=== PATIENT | male | born 1975 | race Caucasian/White ===

== ENCOUNTER → 2016-11-12 | Outpatient (CLI) | payer OTHER | LOC: FIMAGING 10:05 | PROVIDERS: ATTEND Family Medicine | DX: K82.8 Other specified diseases of gallbladder (principal); R10.13 Epigastric pain | CPT/HCPCS: 78227; A9537 ==

== ENCOUNTER 2017-03-12 07:41 | Day surgery (SDC) | payer OTHER ==
--- NOTE | 2017-01-14 14:02 | GHP ---
[f rep st] PREOP HISTORY AND PHYSICAL DATE OF ADMISSION: 01/16/2017 HISTORY OF PRESENT ILLNESS: The patient is a 41-year-old male who initially presented with right up per quadrant abdominal pain associated with nausea and vomiting, and has been referred to us with a diagnosis of gallbladder dyskinesia from a HIDA scan, measuring an ejection fraction at 14%. He was seen in the ER in August at [facility] and he was found to have elevated LFTs and some gallbladder wall thi ckening on ultrasound. He was seen again in an ER in October in [place] for the same symptoms. He has also seen his PCP for some complaints of diarrhea. At this time, he is ready to proceed with a lap aroscopic cholecystectomy. Risks and options have been fully discussed including, but not limited t o, bleeding, infection, nerve injury, bile duct injury, retained stone, need for ERCP, open procedur e, failure to relieve some or all of his symptoms, and other problems, and he requests to proceed. Incidentally, patient also reports a history of bilateral inguinal hernias. These cause him some mi ld discomfort. We have agreed to fix this at the same time. Risks of this procedure include, but a re not limited to, again, bleeding, infection, and nerve injury, but also conversion to open procedu re, recurrent hernia, bowel injury, bladder injury, testicular ischemia, and other problems, and he requests to proceed. PAST MEDICAL HISTORY: Includes actinic keratoses, inguinal hernia, renal lithiasis. PAST SURGICAL HISTORY: Includes ACL reconstruction, tympanostomy tubes, and surgery for renal lithi asis. MEDICATIONS: Vitamin B12, multivitamin, vitamin D. ALLERGIES: No known drug allergies. FAMILY HISTORY: Includes breast cancer and heart disease. SOCIAL HISTORY: The patient works as an software engineer developer. He is . He enjoys running, and has 2 chi ldren. REVIEW OF SYSTEMS: Negative aside from that in the HPI. PHYSICAL EXAMINATION: GENERAL: Reveals a well-developed, well-nourished, 41-year-old male, in no a cute distress. HEENT: Normocephalic, atraumatic. Sclerae white. CHEST: Clear to auscultation bi laterally. CARDIAC: Regular rate and rhythm. ABDOMEN: Soft with bilateral reducible groin masses , mild right upper quadrant tenderness without Moseley sign. EXTREMITIES: Warm and dry. IMPRESSION: This is a 41-year-old male with biliary dyskinesia and bilateral inguinal hernias. PLAN: Plan is to proceed with a laparoscopic cholecystectomy, possible intraoperative cholangiograp hy, with bilateral inguinal hernia repairs with mesh. Again, risks and options have been discussed and he requests to proceed. /[id number]/MODL
[~2017-03-12 07:41] MED LIST: cefOXitin SODIUM 2 GM in D5W 100 ML IV ONE
[2017-03-12] MEDS ORDERED: BUPIVACAINE 0.5% 30 ML SDV ONE (07:56)
[2017-03-12] MEDS ORDERED: ceFAZolin 1 GM/5 ML SYR ONE (07:57)
[2017-03-12] MEDS ORDERED: HEPARIN 1000 UNIT/1 ML MDV ONE (07:57)
--- NOTE | 2017-03-12 08:02 | PDHPUP ---
History & Physical Update H&P update statement: This history and physical update is based on an assessment of the patient which was completed after admission or registration (within 24 hours), but prior to the surgery/procedure. H&P update: H&P reviewed & patient examined, no change in patient's condition since H&P completed
[2017-03-12] MEDS ORDERED: LR 1,000 ML IV ONE (08:17)
[2017-03-12] MEDS ORDERED: LIDOCAINE 1% 2 ML INJ ID PRN (08:17)
[2017-03-12 08:36] VITALS: PULSE 60
[2017-03-12] MEDS ORDERED: MIDAZOLAM 2 MG/2 ML VIAL IVP ONE (09:23)
--- NOTE | 2017-03-12 09:25 | PDANEPAE ---
ANE Past Medical History - Cardiovascular History Hx Hypertension: No Hx Arrhythmias: No Hx Chest Pain: No Hx Coronary Artery / Peripheral Vascular Disease: No Hx CHF / Valvular Disease: No Hx Palpitations: No - Pulmonary History Hx COPD: No Hx Asthma/Reactive Airway Disease: No Hx Recent Upper Respiratory Infection: No Hx Oxygen in Use at Home: No Hx Sleep Apnea: No Sleep Apnea Screening Result - Last Documented: Negative - Neurologic History Hx Cerebrovascular Accident: No Hx Seizures: No Hx Dementia: No - Endocrine History Hx Diabetes: No - Renal History Hx Renal Disorders: No Renal History Comment: HX KIDNEY STONES - Liver History Hx Hepatic Disorders: Yes Hepatic History Comment: GALL BLADDER SXS - Neurological & Psychiatric Hx Hx Neurological and Psychiatric Disorders: No - Cancer History Hx Cancer: No - Congenital Disorder History Hx Congenital Disorders: No - GI History Hx Gastrointestinal Disorders: No - Other Health History Other Health History: NEG - Chronic Pain History Chronic Pain: No - Surgical History Prior Surgeries: ACL L KNEE 2001. EAR TUBES X3 CHILDHOOD ANE Review of Systems Review of Systems: - Exercise capacity METS (RN): 5 METS ANE Patient History - Allergies Allergies/Adverse Reactions: No Known Allergies Allergy (Unverified 06/08/14 07:29) - Home Medications Home Medications: NK [No Known Home Meds] 03/11/17 [Last Taken Unknown] - NPO status NPO Since - Liquids (Date): 03/11/17 NPO Since - Liquids (Time): 20:30 NPO Since - Solids (Date): 03/11/17 NPO Since - Solids (Time): 20:30 - Anes Hx Anes Hx: no prior problems - Smoking Hx Smoking Status: Never smoked - Family Anes Hx Family Hx Anesthesia Complications: NEG ANE Labs/Vital Signs - Vital Signs Blood Pressure: 101/77 Heart Rate: 60 Respiratory Rate: 16 O2 Sat (%): 97 Height: 167.64 cm Weight: 62.596 kg ANE Physical Exam - Airway Neck exam: FROM Mallampati Score: Class 1 Mouth exam: normal dental/mouth exam - Pulmonary Pulmonary: no respiratory distress, no rales or rhonchi, clear to auscultation - Cardiovascular Cardiovascular: regular rate and rhythym, no murmur, rub, or gallop - ASA Status ASA Status: I ANE Anesthesia Plan Anesthesia Plan: general endotracheal anesthesia
[2017-03-12] MEDS ORDERED: fentaNYL 100 MCG/2 ML INJ ONE ×3 (09:29→11:28)
[2017-03-12] MEDS ORDERED: PROPOFOL 200 MG/20 ML VIAL ONE (09:29)
[2017-03-12] MEDS ORDERED: ONDANSETRON 4 MG/2 ML VIAL ONE (09:30)
[2017-03-12] MEDS ORDERED: ROCURONIUM 50 MG/5 ML VIAL ONE (09:30)
[2017-03-12] MEDS ORDERED: LIDOCAINE 2% 5 ML SDV ONE (09:30)
[2017-03-12] MEDS ORDERED: DEXAMETHASONE 4 MG/ML VIAL ONE (09:30)
[2017-03-12] MEDS ORDERED: PROMETHAZINE HCL 25 MG/ML INJ IVP PRN (09:37)
[2017-03-12] MEDS ORDERED: ONDANSETRON 4 MG/2 ML VIAL IVP PRN (09:37)
[2017-03-12] MEDS ORDERED: LABETALOL HCL 50 MG/10 ML SYR IVP PRN (09:37)
[2017-03-12] MEDS ORDERED: NALOXONE HCL 0.4 MG/ML INJ IVP PRN (09:37)
[2017-03-12] MEDS ORDERED: MEPERIDINE 25 MG/ML SYR IVP PRN (09:37)
[2017-03-12] MEDS ORDERED: LR 500 ML IV PRN (09:37)
[2017-03-12] MEDS ORDERED: ACETAMINOPHEN 500 MG TAB PO PRN (09:37)
[2017-03-12] MEDS ORDERED: SUGAMMADEX SODIUM 200 MG/2 ML VIAL IVP ONE (10:47)
[2017-03-12] MEDS ORDERED: KETOROLAC 30 MG/1 ML SDV ONE (10:51)
--- NOTE | 2017-03-12 11:26 | POSTOPPROG ---
Post Op Note Date of Operation: 03/12/17 Surgeon: Alexsander Stinson Senior Hr Generalist: Ana Coronado Anesthesiologist: Danelle Anesthesia: GET(General Endotracheal) Pre-op Diagnosis: Biliary dyskinesia and bilateral inguinal hernia Post-op Diagnosis: same Indication: RUQ abdominal pain, symptomatic hernias Procedure: lap cholecystectomy and lap bilateral inguinal hernia repair c mesh Inf/Abcess present in the surg proc area at time of surgery?: No Depth: Organ Space EBL: Minimal Complications: None Specimen(s): Gallbladder to pathology
[2017-03-12] MEDS: fentaNYL 100 MCG/2 ML INJ IVP PRN ×2 (11:31→11:38)
[2017-03-12 11:36] VITALS: TEMP 96.8
--- NOTE | 2017-03-12 11:47 | POSTANESTH ---
Post Anesthetic Evaluation Cardiovascular Status: Normal, Stable, Similar to Pre-Op Cond Respiratory Status: Normal, Stable, Similar to Pre-op Cond. Level of Consciousness/Mental Status: Can Participate in Eval, Mildly Sleepy, Arousable Pain Control: Adequate, Prn Tx Ordered Nausea/Vomiting Control: Adequate, Prn Tx Ordered Complications Possibly Related to Anesthesia: None Noted
[2017-03-12] MEDS ORDERED: OXYCODONE/APAP 5/325 TAB ONE ×2 (12:05→13:13)
[2017-03-12] MEDS: OXYCODONE/APAP 5/325 TAB PO PRN ×2 (12:07→13:15)
[2017-03-12 12:56] VITALS: BP 109/74; RESP 16; O2SAT 95
--- NOTE | 2017-03-13 21:34 | GOP ---
[f rep st] OPERATIVE REPORT DATE OF OPERATION: 03/12/2017 SURGEON: Alexsander Stinson MD PREOPERATIVE DIAGNOSIS: Bilateral inguinal hernias and biliary dyskinesia. POSTOPERATIVE DIAGNOSIS: Bilateral inguinal hernias and biliary dyskinesia. PROCEDURE PERFORMED: 1. Laparoscopic bilateral inguinal hernia repairs. 2. Laparoscopic cholecystectomy. FINDINGS: Patient was found to have a large direct defect on the left, a smaller indirect defect and lipoma on the right, and he had an inflamed gallbladder with adhesions but no palpable stones. Duct s were small. DESCRIPTION OF PROCEDURE: Patient was taken to the operating room where he received satisfactory gen eral endotracheal anesthesia by Dr. Mcclendon. He was placed in supine position, prepped and draped in u sual sterile fashion. An infraumbilical incision was made. Dissection was carried down the rectus s luly which was incised. Subfascial tunnel was developed in the preperitoneal space, that was dissec marion free with a balloon dissector which was placed with CO2 insufflation. Two other trocars were radha efrain in the midline under direct vision. Ganga's ligament was exposed bilaterally. The cords were m obilized bilaterally. Peritoneum was dissected off the cord structures. There was no indirect sac o n the left side. On the right, there was a small indirect sac and a moderate lipoma which were disse cted free and reduced. Bilateral Covidien polyester mesh patches were placed over the inguinal floor . On the left side, a well-defined [id number]-adasd direct defect was identified. Its contents had been reduced. The mesh was then anchored over the defect and secured with AbsorbaTack securing it t o Ganga's ligament, to the lacunar ligament, anterior abdominal wall, and the lateral abdominal wall outside the internal ring. Both sides were handled in a similar manner. Hemostasis was assured. T rocars were removed under direct vision. Pneumopreperitoneum was released. Trocar sites were closed with 0 Vicryl for the fascia, 4-0 Monocryl subcuticular stitch for the skin. Attention was then turned to the gallbladder. A Veress needle was inserted through the periumbilical incision. Pneumoperitoneum was established. A 10 mm trocar was introduced. Laparoscope introduced . Good visualization was obtained. Three other trocars were placed in the upper abdomen under direc t vision. The gallbladder was elevated up, adhesions were taken down. The cystic triangle was caref ully dissected free. The cystic duct and cystic artery were isolated. A good clear view was obtaine d. Both structures were multiply hemoclipped and divided. Peritoneum of the gallbladder was incised and the gallbladder was dissected free from the bed in the hepatic fossa and extracted through the u mbilical port site. Wound was irrigated. Hemostasis was assured. Trocars were removed under direct vision. Trocar sites were closed with 0 Vicryl for the fascia, 4-0 Monocryl subcuticular stitch for the skin. All layers were infiltrated with 0.5% Marcaine. He tolerated the procedure quite well. There were no complications. Taken to the recovery room in good condition. /[id number]/MODL
== END 2017-03-12 13:52 | disposition home or self-care (01) ==
LOC: FSGY 07:41
PROVIDERS: ATTEND Surgery
DX: K82.8 Other specified diseases of gallbladder (principal); K40.20 Bilateral inguinal hernia, without obstruction or gangrene, not specified as recurrent
CPT/HCPCS: C1727; C1781; J0694; J1100; J1885; J2250; J2405; J2704; J3010